=== PATIENT | female | born 1965 | race African-American/Black ===

== ENCOUNTER 2016-11-05 11:39 | Emergency (ER) | payer OTHER ==
[~2016-11-05] VITALS: Ht 175.3 cm; Wt 71.0 kg
[~2016-11-05 11:39] MED LIST: ADVA250A INH; FURO20 PO; KEPP1000 PO; PERC10TA27 PO; XANA0.5T PO
[2016-11-05] MEDS ORDERED: SODIUM CHLORIDE 0.9% FLUSH 5 ML FLUSH IVF PRN (12:00)
[2016-11-05 12:01] VITALS: BP 133/74; PULSE 83; RESP 24; TEMP 98.1; O2SAT 95
[2016-11-05 12:06] VITALS: O2SAT 96
--- NOTE | 2016-11-05 12:07 | PD ---
HPI Chief Complaint: Seizure Time Seen by Provider: 12:04 Travel History International Travel<30 days: No Contact w/Intl Traveler<30days: No Traveled to known affect area: No History of Present Illness HPI Patient comes in for evaluation status post seizure occurred while at home. Patient has a history of seizures and has a dog that warned her prior to having a seizure. Patient states she was sitting on a stool talking with her son when the seizure occurred. Paramedics report they pick patient up off the floor and the patient was postictal. Patient reports she feels similar to previous seizures and that she feels tired and a little short of breath, which she reports is how she normally feels after having a seizure. Patient reports her discomfort her left occipital lobe. Patient reports her last seizure was June 2016 and that she does follow with her neurologist. Denies any chest pain, nausea, vomiting, abdominal pain, or fevers. PFSH Past Medical History Asthma: Yes Bipolar Disorder: Yes Anxiety: Yes Depression: Yes Heart Rhythm Problems: No Cancer: No Cardiovascular Problems: Yes High Cholesterol: No Chemotherapy: No Congestive Heart Failure: Yes Diabetes: Yes (BORDERLINE) Diminished Hearing: No Endocrine: Yes Gastrointestinal Disorders: No GERD: Yes Genitourinary: Yes (FIBROIDS) Hepatitis: No Hiatal Hernia: No Hypertension: Yes Immune Disorder: Yes Implanted Vascular Access Dvce: No Musculoskeletal: Yes (CHRONIC BACK & LT SHOULDER) Neurologic: Yes (SEIZURE DISORDER) Psychiatric: Yes ( PANIC ATTACKS) Reproductive: No Respiratory: Yes (ASTHMA) Immunizations Current: Yes Migraines: Yes Radiation Therapy: No Seizures: Yes (CONTROLLED WITH MEDS , LAST SEIZURE - LAST 2014) Sickle Cell Disease: No Thyroid Disease: No LMP: 2012 Menopausal: Yes : 2 Para: 1 Miscarriage: 1 Past Surgical History AICD: No Gynecologic Surgery: Yes (FIBROID EMBOLIZATION) Hysterectomy: Yes (Partial) Joint Replacement: No Pacemaker: No Other Surgery: Yes (1 year ago fibroid uterine embolization) Social History Alcohol Use: No Tobacco Use: No Substance Use: No Allergies-Medications (Allergen,Severity, Reaction): Coded Allergies: Fentanyl (Verified Allergy, Unknown, SEIZURES, 11/05/16) Vicodin (Verified Allergy, Unknown, 11/05/16) Sulfa (Verified Adverse Reaction, Intermediate, VOMIT, 11/05/16) SHORTNESS OF BREATH Reported Meds & Prescriptions Reported Meds & Active Scripts Active Reported Omeprazole 20 Mg Tab 20 Mg PO DAILY Gabapentin 100 Mg Cap 100 Mg PO TID Lasix (Furosemide) 20 Mg Tab 20 Mg PO DAILY Fentanyl Patch 72 HR (Fentanyl) 50 Mcg/Hr Patch 50 Mcg T-DERMAL Q72H Remove old patch when new one placed. Oxycodone-Acetaminophen 10-325 mg Tab 1 Tab PO Q6H PRN Meloxicam 15 Mg Tab 20 Mg PO DAILY Ventolin Hfa 18 GM Inh (Albuterol Sulfate) 90 Mcg/Act Aer 2 Puff INH Q4-6H PRN Xanax (Alprazolam) 0.5 Mg Tab 0.5 Mg PO Q8H PRN Keppra (Levetiracetam) 1,000 Mg Tab 1,000 Mg PO BID Trokendi Xr (Topiramate) 25 Mg Cap 25 Mg PO BID Review of Systems Except as stated in HPI: all other systems reviewed are Neg Physical Exam Narrative GENERAL: Well-developed, well nourished, in no acute distress, and non-ill appearing. SKIN: Warm and dry. HEAD: Atraumatic. Normocephalic. EYES: Pupils equal and round. EOMI. No scleral icterus. No injection or drainage. ENT: No nasal bleeding or discharge. Mucous membranes pink and moist. NECK: Trachea midline. Supple. No nuclear rigidity. CARDIOVASCULAR: Regular rate and rhythm. No murmur appreciated. RESPIRATORY: No accessory muscle use. No respiratory distress. Clear to auscultation. Breath sounds equal bilaterally. MUSCULOSKELETAL: No obvious deformities. No clubbing. No cyanosis. No edema. Full range of motion. NEUROLOGICAL: Awake and alert. No obvious cranial nerve deficits. Motor grossly within normal limits. Normal speech. PSYCHIATRIC: Appropriate mood and affect; insight and judgment normal. Data Data Last Documented VS Vital Signs Date Time Temp Pulse Resp B/P Pulse Ox O2 Delivery O2 Flow Rate FiO2 11/05/16 12:06 96 11/05/16 12:01 98.1 83 24 133/74 Orders Complete Blood Count With Diff (11/05/16 11:58) Basic Metabolic Panel (Bmp) (11/05/16 11:58) Ct Brain W/O Iv Contrast(Rout) (11/05/16 ) Blood Glucose (11/05/16 11:58) Ecg Monitoring (11/05/16 11:58) Iv Access Insert/Monitor (11/05/16 11:58) Oximetry (11/05/16 11:58) Sodium Chloride 0.9% Flush (Ns Flush) (11/05/16 12:00) Topiramate (Topamax) (11/05/16 11:58) Labs Laboratory Tests Test 11/05/16 12:44 White Blood Count 6.0 TH/MM3 Red Blood Count 4.47 MIL/MM3 Hemoglobin 13.9 GM/DL Hematocrit 40.5 % Mean Corpuscular Volume 90.6 FL Mean Corpuscular Hemoglobin 31.0 PG Mean Corpuscular Hemoglobin 34.3 % Concent Red Cell Distribution Width 13.8 % Platelet Count 202 TH/MM3 Mean Platelet Volume 8.4 FL Neutrophils (%) (Auto) 52.8 % Lymphocytes (%) (Auto) 33.9 % Monocytes (%) (Auto) 11.2 % Eosinophils (%) (Auto) 1.6 % Basophils (%) (Auto) 0.5 % Neutrophils # (Auto) 3.2 TH/MM3 Lymphocytes # (Auto) 2.0 TH/MM3 Monocytes # (Auto) 0.7 TH/MM3 Eosinophils # (Auto) 0.1 TH/MM3 Basophils # (Auto) 0.0 TH/MM3 CBC Comment DIFF FINAL Differential Comment Sodium Level 140 MEQ/L Potassium Level 3.6 MEQ/L Chloride Level 104 MEQ/L Carbon Dioxide Level 30.7 MEQ/L Anion Gap 5 MEQ/L Blood Urea Nitrogen 11 MG/DL Creatinine 0.97 MG/DL Estimat Glomerular Filtration 74 ML/MIN Rate Random Glucose 102 MG/DL Calcium Level 8.9 MG/DL MDM Medical Decision Making Medical Screen Exam Complete: Yes Emergency Medical Condition: Yes Differential Diagnosis Seizure, electrolyte abnormality, headache injury, intracranial hemorrhage, other Narrative Course The patient presented with seizure. The patient has a known seizure disorder. The patient looks great and has returned to baseline. There is no evidence clinically to suggest meningitis, infection or metabolic etiology. The patient appears well hydrated and nontoxic. Clinical suspicion was discussed with patient. Patient was instructed to return as needed or if recurred prior to follow up with neurology. Patient agreed with plan and instructions. The patient was also informed that they may not drive or operated heavy machinery due to the fact that they may have a seizure and cause injury or to themselves or others. They may not drive or operate heavy machinery until cleared by a neurologist. Patient in no obvious distress upon re-evaluation. All pertinent laboratory/ Radiology result(s) discussed with patient. Discussed patient with Dr. Laguna, who saw and evaluated the patient and is in agreement with plan of care and disposition. Any questions/concerns in reference to patient diagnosis/ condition discussed and clarified prior to patient's discharge. Reinforced sheer importance of close follow up with patient's neurologist. Instructed patient to return to ED immediately, if symptoms return/worsen. Pt showed understanding of above instructions. Further instructions and recommendations were detailed in discharge paperwork. Pt ambulated without difficulty out of ED at discharge. Diagnosis Primary Impression: Seizure Patient Instructions: General Instructions, Recurrent Seizures in Adults (GEN) Additional Instructions: Follow-up with your neurologist this week for reevaluation. Return to the emergency department if symptoms get worse. Disposition: 01 DISCHARGE HOME Condition: Stable Jim Daley Nov 05, 2016 12:07
[2016-11-05] MEDS ORDERED: ALPR.5 PO (12:13)
[2016-11-05] MEDS ORDERED: KEPP10002 PO (12:13)
[2016-11-05] MEDS ORDERED: TOPI1CAP25 PO (12:13)
[2016-11-05] MEDS ORDERED: VENTAER INH (12:13)
[2016-11-05] MEDS ORDERED: OXYC1TAB36 PO (12:14)
[2016-11-05] MEDS ORDERED: GABA100C4 PO (12:14)
[2016-11-05] MEDS ORDERED: FURO1TAB62 PO (12:14)
[2016-11-05] MEDS ORDERED: MELO-1 PO (12:14)
[2016-11-05] MEDS ORDERED: OMEP20TA PO (12:14)
[2016-11-05] MEDS ORDERED: FENT50DI T-DERMAL (12:14)
[2016-11-05] MEDS ORDERED: DEPRESSION PO (12:14)
--- NOTE | 2016-11-05 12:30 | RADRPT ---
EXAM DATE/TIME: 11/05/2016 12:22 [facility] COMPARISON: CT BRAIN W/O CONTRAST, May 13, 2016, 14:36. INDICATIONS : Seizure; trauma, posterior. RADIATION DOSE: 47.06 CTDIvol (mGy) MEDICAL HISTORY : Seizures. Cardiovascular disease Hypertension. SURGICAL HISTORY : Hysterectomy. ENCOUNTER: Initial ACUITY: 1 day PAIN SCALE: 6/10 LOCATION: cranial TECHNIQUE: Multiple contiguous axial images were obtained of the head. Using automated exposure control and adj ustment of the mA and/or kV according to patient size, radiation dose was kept as low as reasonably a chievable to obtain optimal diagnostic quality images. FINDINGS: CEREBRUM: The ventricles are normal for age. No evidence of midline shift, mass lesion, hemorrhage or acute in farction. No extra-axial fluid collections are seen. POSTERIOR FOSSA: The cerebellum and brainstem are intact. The 4th ventricle is midline. The cerebellopontine angle i s unremarkable. EXTRACRANIAL: The visualized portion of the orbits is intact. SKULL: The calvaria is intact. No evidence of skull fracture. CONCLUSION: No acute disease. Maco Alexis MD FACR on November 05, 2016 at 12:28 Board Certified Radiologist. This report was verified electronically.
[2016-11-05 13:09] LABS: AUTOMATED NEUTROPHIL # 3.2 TH/MM3 (1.8-7.7); BASOPHIL % 0.5 % (0.0-2.0); EOSINOPHIL # 0.1 TH/MM3 (0-0.4); EOSINOPHIL % 1.6 % (0.0-4.0); HEMATOCRIT 40.5 % (35.0-46.0); HEMO FLAGS DIFF FINAL; LYMPH % 33.9 % (9.0-44.0); MEAN CELL VOLUME 90.6 FL (80.0-100.0); MEAN CORPUSCULAR HGB CONC 34.3 % (32.0-36.0); MONO % 11.2 % (0.0-8.0); NEUT % 52.8 % (16.0-70.0); PLATELET COUNT 202 TH/MM3 (150-450); RED BLOOD COUNT 4.47 MIL/MM3 (4.00-5.30); RED CELL DISTRIBUTION WIDTH 13.8 % (11.6-17.2)
[2016-11-05 13:25] LABS: BICARBONATE 30.7 MEQ/L (21.0-32.0); POTASSIUM 3.6 MEQ/L (3.5-5.1)
== END 2016-11-05 14:23 | disposition home or self-care (01) ==
LOC: NEPE 11:39
DX: G40.909 Epilepsy, unspecified, not intractable, without status epilepticus (principal); R73.03 Prediabetes; I10 Essential (primary) hypertension; Z87.09 Personal history of other diseases of the respiratory system; Z86.59 Personal history of other mental and behavioral disorders; Z86.79 Personal history of other diseases of the circulatory system; Z87.19 Personal history of other diseases of the digestive system; Z86.2 Personal history of diseases of the blood and blood-forming organs and certain disorders involving the immune mechanism; Z87.39 Personal history of other diseases of the musculoskeletal system and connective tissue; Z86.69 Personal history of other diseases of the nervous system and sense organs
CPT/HCPCS: 70450; 80048; 80201; 85025

== ENCOUNTER 2017-01-05 19:22 | Emergency (ER) | payer OTHER ==
[~2017-01-05] VITALS: Ht 175.3 cm; Wt 78.0 kg
[~2017-01-05 19:22] MED LIST changes: -ADVA250A INH; +ALPR.5 PO; +DEPRESSION PO; +FENT50DI T-DERMAL; +FURO1TAB62 PO; -FURO20 PO; +GABA100C4 PO; -KEPP1000 PO; +KEPP10002 PO; +MELO-1 PO; +OMEP20TA PO; +OXYC1TAB36 PO; -PERC10TA27 PO; +TOPI1CAP25 PO; +VENTAER INH; -XANA0.5T PO
[2017-01-05 19:27] VITALS: BP 114/68; PULSE 76; RESP 18; TEMP 98.1; O2SAT 100
[2017-01-05 19:40] VITALS: BP 114/68; PULSE 76; RESP 18; TEMP 98.1; O2SAT 100
--- NOTE | 2017-01-05 19:57 | PD ---
HPI Chief Complaint: Complaint Time Seen by Provider: 19:40 Travel History International Travel<30 days: No Contact w/Intl Traveler<30days: No Traveled to known affect area: No History of Present Illness HPI Patient is a 51 year old female who presents to ER with c/o of irritation to her vagina. Patient reports that she was told by her catering truck operator not to use scented bath soaps. Reports that she accidentally bought a scented bath soap and reports that she noticed increased irritation to her vagina. Patient reports that she has these symptoms past, she usually has a yeast infection. Patient denies any vaginal discharge or bleeding. Patient reports that she has had a hysterectomy in the past, that she has not been sexually active for the past few months and adamantly denies vaginal discharge. Patient denies dysuria , urinary urgency or frequency. Patient denies fevers or chills. Patient denies abdominal pain. Patient with no other complaints. PFSH Past Medical History Asthma: Yes Bipolar Disorder: Yes Anxiety: Yes Depression: Yes Heart Rhythm Problems: No Cancer: No Cardiovascular Problems: Yes High Cholesterol: No Chemotherapy: No Congestive Heart Failure: Yes Diabetes: Yes (BORDERLINE) Patient Takes Glucophage: No Diminished Hearing: No Endocrine: Yes Gastrointestinal Disorders: No GERD: Yes Genitourinary: Yes (FIBROIDS) Hepatitis: No Hiatal Hernia: No Hypertension: Yes Immune Disorder: Yes Implanted Vascular Access Dvce: No Musculoskeletal: Yes (CHRONIC BACK & LT SHOULDER) Neurologic: Yes (SEIZURE DISORDER) Psychiatric: Yes ( PANIC ATTACKS) Reproductive: No Respiratory: Yes (ASTHMA) Immunizations Current: Yes Migraines: Yes Radiation Therapy: No Seizures: Yes (CONTROLLED WITH MEDS , LAST SEIZURE - LAST 2014) Sickle Cell Disease: No Thyroid Disease: No Tetanus Vaccination: < 5 Years Influenza Vaccination: Yes ?: Not Menopausal: Yes : 2 Para: 1 Miscarriage: 1 Past Surgical History AICD: No Gynecologic Surgery: Yes (FIBROID EMBOLIZATION) Hysterectomy: Yes Joint Replacement: No Pacemaker: No Other Surgery: Yes (1 year ago fibroid uterine embolization) Social History Alcohol Use: No Tobacco Use: No Substance Use: No Allergies-Medications (Allergen,Severity, Reaction): Coded Allergies: Fentanyl (Verified Allergy, Unknown, SEIZURES, 01/05/17) Vicodin (Verified Allergy, Unknown, 01/05/17) Sulfa (Verified Adverse Reaction, Intermediate, VOMIT, 4/1/17) SHORTNESS OF BREATH Reported Meds & Prescriptions Reported Meds & Active Scripts Active Diflucan (Fluconazole) 150 Mg Tab 150 Mg PO ONCE Macrobid (Nitrofurantoin Monoh/Nitrofur Macro) 100 Mg Cap 100 Mg PO BID 10 Days Reported Omeprazole 20 Mg Tab 20 Mg PO DAILY Fentanyl Patch 72 HR (Fentanyl) 50 Mcg/Hr Patch 50 Mcg T-DERMAL Q72H Remove old patch when new one placed. Oxycodone-Acetaminophen 10-325 mg Tab 1 Tab PO Q6H PRN Ventolin Hfa 18 GM Inh (Albuterol Sulfate) 90 Mcg/Act Aer 2 Puff INH Q4-6H PRN Xanax (Alprazolam) 0.5 Mg Tab 0.5 Mg PO Q8H PRN Keppra (Levetiracetam) 1,000 Mg Tab 1,000 Mg PO BID Trokendi Xr (Topiramate) 25 Mg Cap 25 Mg PO BID Review of Systems General / Constitutional: No: Fever Eyes: No: Visual changes HENT: No: Headaches Cardiovascular: No: Chest Pain or Discomfort Respiratory: No: Shortness of Breath Gastrointestinal: No: Abdominal Pain Genitourinary: No: Urgency, Frequency, Dysuria, Pelvic Pain, Flank Pain, Discharge, Vaginal Bleeding Musculoskeletal: No: Pain Skin: No Rash Neurologic: No: Weakness Psychiatric: No: Depression Endocrine: No: Polydipsia Hematologic/Lymphatic: No: Easy Bruising Physical Exam Narrative GENERAL: nad, nontoxic SKIN: Focused skin assessment warm/dry. HEAD: Atraumatic. Normocephalic. NECK: Trachea midline. No JVD. CARDIOVASCULAR: Regular rate and rhythm. No murmur appreciated. RESPIRATORY: No accessory muscle use. Clear to auscultation. Breath sounds equal bilaterally. GASTROINTESTINAL: Abdomen soft, non-tender, nondistended. Hepatic and splenic margins not palpable. Exam: patient with no vaginal discharge on exam, labia majora with slight redness/irritation, no abnormal lesions or vesicles MUSCULOSKELETAL: No obvious deformities. No clubbing. No cyanosis. No edema. NEUROLOGICAL: Awake and alert. Normal speech. PSYCHIATRIC: Appropriate mood and affect; insight and judgment normal. Data Data Last Documented VS Vital Signs Date Time Temp Pulse Resp B/P Pulse Ox O2 Delivery O2 Flow Rate FiO2 01/05/17 19:47 76 18 01/05/17 19:40 98.1 114/68 100 Orders Urinalysis - C+S If Indicated (01/05/17 19:50) Urine Culture (01/05/17 20:00) Nitrofurantoin Monohyd Macrocr (Macrobid (01/05/17 20:30) Labs Laboratory Tests Test 01/05/17 20:00 Urine Color YELLOW Urine Turbidity SLIGHT Urine pH 5.5 Urine Specific Peyton 1.021 Urine Protein NEG mg/dL Urine Glucose (UA) NEG mg/dL Urine Ketones NEG mg/dL Urine Occult Blood NEG Urine Nitrite NEG Urine Bilirubin NEG Urine Leukocyte Esterase SMALL Urine RBC 0-3 /hpf Urine WBC 15-19 /hpf Urine Squamous Epithelial 6-8 /hpf Cells Urine Bacteria OCC /hpf Urine Mucus MOD /lpf Microscopic Urinalysis Comment CULTURE INDICATED MDM Medical Decision Making Medical Screen Exam Complete: Yes Emergency Medical Condition: Yes Interpretation(s) Vital Signs Date Time Temp Pulse Resp B/P Pulse Ox O2 Delivery O2 Flow Rate FiO2 01/05/17 19:47 76 18 01/05/17 19:40 98.1 76 18 114/68 100 01/05/17 19:27 98.1 76 18 114/68 100 Differential Diagnosis yeast infection, uti, cervicitis Narrative Course 51 year old female who presents to emergency room with complaints of 2 days of vaginal irritation and itching. Patient reports that she has been using scented bath soap which her catering truck operator told her not to use as they do give her yeast infections. Patient concerned that she may have a yeast versus urinary tract infection at this time. Patient underwent denies vaginal discharge, patient defers internal pelvic exam at this time. UA sent. Patient with most likely yeast infection given her mild irritation to her labia majora on exam vs UTI as she reports that she has had UTI's with similar symptoms in the past. Laboratory Tests Test 01/05/17 20:00 Urine Color YELLOW (YELLW/STRAW) Urine Turbidity SLIGHT (CLEAR) Urine pH 5.5 (5.0-8.5) Urine Specific Peyton 1.021 (1.002-1.035) Urine Protein NEG mg/dL (NEG-TRACE) Urine Glucose (UA) NEG mg/dL (NEG) Urine Ketones NEG mg/dL (NEG) Urine Occult Blood NEG (NEG) Urine Nitrite NEG (NEG) Urine Bilirubin NEG (NEG) Urine Leukocyte Esterase SMALL (NEG) Urine RBC 0-3 /hpf (0-3) Urine WBC 15-19 /hpf (0-5) Urine Squamous Epithelial 6-8 /hpf (0-5) Cells Urine Bacteria OCC /hpf (NONE) Urine Mucus MOD /lpf (OCC) Microscopic Urinalysis Comment CULTURE INDICATED Microbiology Date/Time Procedure Status Source Growth 01/05/17 20:00 Urine Culture Received Urine Clean Catch Pending pt with uti, cx sent. will also tx with diflucan for yeast infection. Patient will follow up with cultures today. Patient will return to emergency room as needed Diagnosis Primary Impression: UTI (urinary tract infection) Qualified Code: N30.01 - Acute cystitis with hematuria Patient Instructions: General Instructions Additional Instructions: Please follow-up with cultures from today Return to the emergency room symptoms worsen or progress Return to emergency room as needed Please up with your catering truck operator Med/Other Pt SpecificInfo: Prescription(s) given Scripts Fluconazole (Diflucan)150 Mg [id number] Mg PO ONCE #2 TAB Ref 0 Prov:Katia Samson DO 01/05/17 Nitrofurantoin Monohydrate Macrocrystals (Macrobid)100 Mg [id number] Mg PO BID 10 Days Ref 0 Prov:Katia Samson DO 01/05/17 Disposition: 01 DISCHARGE HOME Condition: Stable Katia Samson DO Jan 05, 2017 19:57
[2017-01-05 20:16] LABS: BLOOD, URINE NEG (NEG); GLUCOSE,URINE NEG (NEG); KETONE, URINE NEG (NEG); NITRITE,URINE NEG (NEG); PH, URINE 5.5 (5.0-8.5)
[2017-01-05 20:22] LABS: URINE COLOR YELLOW (YELLW/STRAW)
[2017-01-05 20:23] LABS: BACTERIA, URINE OCC /hpf; COMMENT (UR) CULTURE INDICATED; CULTURE IF INDICATED CULTURE INDICATED; MUCUS URINE MOD /lpf (OCC); RBC, URINE 0-3 /hpf (0-3); WBC, URINE 15-19 /hpf (0-5)
[2017-01-05] MEDS ORDERED: MACR100C2 PO (20:30)
[2017-01-05] MEDS ORDERED: DIFL150T PO (20:30)
[2017-01-05] MEDS ORDERED: NITROFURANTOIN MONOHYD MACROCR 100 MG CAP PO ONE (20:30)
[2017-01-05 20:57] VITALS: BP 98/72
== END 2017-01-05 21:02 | disposition home or self-care (01) ==
LOC: PHED 19:22
DX: N30.01 Acute cystitis with hematuria (principal); B96.89 Other specified bacterial agents as the cause of diseases classified elsewhere; J45.909 Unspecified asthma, uncomplicated; I11.0 Hypertensive heart disease with heart failure; I50.9 Heart failure, unspecified; K21.9 Gastro-esophageal reflux disease without esophagitis; G40.909 Epilepsy, unspecified, not intractable, without status epilepticus; Z88.2 Allergy status to sulfonamides; Z88.5 Allergy status to narcotic agent
CPT/HCPCS: 81001; 87086; 99283

== ENCOUNTER → 2017-01-07 | Outpatient (CLI) | payer OTHER ==
[~2017-01-07] MED LIST changes: -DEPRESSION PO; +DIFL150T PO; -FURO1TAB62 PO; -GABA100C4 PO; +IBUP800T23 PO; +MACR100C2 PO; -MELO-1 PO
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
== END ==
LOC: HEEG 07:26
PROVIDERS: ATTEND Psychiatry & Neurology Neurology
DX: G40.309 Generalized idiopathic epilepsy and epileptic syndromes, not intractable, without status epilepticus (principal)
CPT/HCPCS: 95819

== ENCOUNTER 2017-02-12 09:08 | Emergency (ER) | payer OTHER ==
[~2017-02-12] VITALS: Ht 175.3 cm; Wt 70.0 kg
[~2017-02-12 09:08] MED LIST changes: -IBUP800T23 PO
[2017-02-12 09:11] VITALS: BP 129/59; PULSE 79; RESP 17; TEMP 98.2; O2SAT 98
--- NOTE | 2017-02-12 09:15 | PD ---
HPI . left knee pain worse since yesterday Chief Complaint: Injury Time Seen by Provider: 09:15 Travel History International Travel<30 days: No Contact w/Intl Traveler<30days: No Traveled to known affect area: No History of Present Illness HPI 51-year-old female with history of seizure disorder and chronic pain here with complaints of left acute on chronic knee pain. Patient tells me she was moving some furniture and accidentally fell to her left knee on the carpet. She tells me that she knows her knee is not broken, however she would like a knee immobilizer. She received one in the past and it helped her a lot, but she does not have it anymore. She is complaining of pain in the left knee. She tells me that she has chronic issues with this knee and has fluid that needs to be drained. She is ambulatory. Today she is accompanied by her service dog. PFSH Past Medical History Asthma: Yes Bipolar Disorder: Yes Anxiety: Yes Depression: Yes Heart Rhythm Problems: No Cancer: No Cardiovascular Problems: Yes High Cholesterol: No Chemotherapy: No Congestive Heart Failure: Yes Diabetes: Yes (BORDERLINE) Diminished Hearing: No Endocrine: Yes Gastrointestinal Disorders: No GERD: Yes Genitourinary: Yes (FIBROIDS) Hepatitis: No Hiatal Hernia: No Hypertension: Yes Immune Disorder: Yes Implanted Vascular Access Dvce: No Musculoskeletal: Yes (CHRONIC BACK & LT SHOULDER) Neurologic: Yes (SEIZURE DISORDER) Psychiatric: Yes ( PANIC ATTACKS) Reproductive: No Respiratory: Yes (ASTHMA) Immunizations Current: Yes Migraines: Yes Radiation Therapy: No Seizures: Yes (CONTROLLED WITH MEDS , LAST SEIZURE - LAST 2014) Sickle Cell Disease: No Thyroid Disease: No ?: Not Menopausal: Yes : 2 Para: 1 Miscarriage: 1 Past Surgical History AICD: No Gynecologic Surgery: Yes (FIBROID EMBOLIZATION) Hysterectomy: Yes Joint Replacement: No Pacemaker: No Other Surgery: Yes (1 year ago fibroid uterine embolization) Social History Alcohol Use: No Tobacco Use: No Substance Use: No Allergies-Medications (Allergen,Severity, Reaction): Coded Allergies: Fentanyl (Verified Allergy, Unknown, SEIZURES, 02/12/17) Vicodin (Verified Allergy, Unknown, 02/12/17) Sulfa (Verified Adverse Reaction, Intermediate, VOMIT, 02/12/17) SHORTNESS OF BREATH Reported Meds & Prescriptions Reported Meds & Active Scripts Active Ibuprofen 800 Mg Tab 800 Mg PO TID Reported Omeprazole 20 Mg Tab 20 Mg PO DAILY Fentanyl Patch 72 HR (Fentanyl) 50 Mcg/Hr Patch 50 Mcg T-DERMAL Q72H Remove old patch when new one placed. Oxycodone-Acetaminophen 10-325 mg Tab 1 Tab PO Q6H PRN Ventolin Hfa 18 GM Inh (Albuterol Sulfate) 90 Mcg/Act Aer 2 Puff INH Q4-6H PRN Xanax (Alprazolam) 0.5 Mg Tab 0.5 Mg PO Q8H PRN Keppra (Levetiracetam) 1,000 Mg Tab 1,000 Mg PO BID Review of Systems General / Constitutional: No: Fever Eyes: No: Visual changes HENT: No: Headaches Cardiovascular: No: Chest Pain or Discomfort Respiratory: No: Shortness of Breath Gastrointestinal: No: Abdominal Pain Genitourinary: No: Dysuria Musculoskeletal: Positive: Pain (left knee pain) Skin: No Rash Neurologic: No: Weakness Psychiatric: No: Depression Endocrine: No: Polydipsia Hematologic/Lymphatic: No: Easy Bruising Physical Exam Narrative GENERAL: AAO x 3, no acute distress, Well-nourished, well-developed patient. SKIN: Warm and dry. No visible rashes or bruising. HEAD: Normocephalic and atraumatic. EYES: No scleral icterus. No injection or drainage. ENT: No nasal drainage noted. Airway patent. NECK: Supple, trachea midline. No JVD. CARDIOVASCULAR: Regular rate and rhythm without murmurs, gallops, or rubs. RESPIRATORY: Breath sounds equal bilaterally. No accessory muscle use. No rhonchi or rales. GASTROINTESTINAL: Visual inspection normal EXTREMITIES: No cyanosis. Mild joint effusion of the left lateral knee. Range of motion is normal. Flexion and extension of the left knee normal. Mild crepitus present. Negative Saniya and Sera. BACK: Nontender without obvious deformity. No CVA tenderness. PSYCH: AAO x 3, normal affect. Data Data Last Documented VS Vital Signs Date Time Temp Pulse Resp B/P Pulse Ox O2 Delivery O2 Flow Rate FiO2 02/12/17 09:11 98.2 79 17 129/59 98 Orders ^ Ciro Bandage (02/12/17 09:18) MDM Medical Decision Making Medical Screen Exam Complete: Yes Emergency Medical Condition: Yes Medical Record Reviewed: Yes Differential Diagnosis Acute on chronic knee pain, OA, RF, knee effusion Narrative Course 51-year-old female with history of seizure disorder and chronic pain here with complaints of left acute on chronic knee pain. Patient tells me she was moving some furniture and accidentally fell to her left knee on the carpet. She tells me that she knows her knee is not broken, however she would like a knee immobilizer. She received one in the past and it helped her a lot, but she does not have it anymore. She is complaining of pain in the left knee. She tells me that she has chronic issues with this knee and has fluid that needs to be drained. She is ambulatory. Today she is accompanied by her service dog. Patient seen and examined. She does not have any evidence of acute trauma to the left knee. This appears to be an acute on chronic issue. There is no need for imaging and we have discussed this. She is in agreement. I will go ahead and provide her with an Ciro wrap. I explained that a knee immobilizer is not indicated for her treatment. We discussed purchasing a knee brace OTC. She can use anti-inflammatories for pain relief. I recommend follow-up with her primary care provider for referral to orthopedist for possible drainage of the effusion. Patient verbalized understanding of instructions, questions were answered, and thanked me for their care. I advised them if their condition worsens, please return to the nearest emergency room for further care. Diagnosis Primary Impression: Knee pain, chronic Qualified Code: M25.562 - Chronic pain of left knee Patient Instructions: General Instructions Additional Instructions: Please return to emergency department if your symptoms return or worsen. Follow up with your primary care provider. Take medications as prescribed. Please follow-up with your primary care provider for referral to orthopedic to have the fluid drained from the knee. Med/Other Pt SpecificInfo: Prescription(s) given Scripts Ibuprofen 800 Mg [id number] Mg PO TID #21 TAB Prov:Katia Samson 02/12/17 Disposition: 01 DISCHARGE HOME Condition: Stable Belem Lunsford February 12, 2017 09:15
[2017-02-12] MEDS ORDERED: IBUP800T23 PO (09:18)
== END 2017-02-12 09:35 | disposition home or self-care (01) ==
LOC: NEPK 09:08
DX: M25.562 Pain in left knee (principal); G89.29 Other chronic pain; I50.9 Heart failure, unspecified; I10 Essential (primary) hypertension; R56.9 Unspecified convulsions
CPT/HCPCS: 99283

== ENCOUNTER 2017-07-07 12:20 | Emergency (ER) | payer OTHER, MEDICAID ==
[~2017-07-07 12:20] MED LIST changes: -DIFL150T PO; +IBUP800T23 PO; -MACR100C2 PO; -TOPI1CAP25 PO
[2017-07-07 12:21] VITALS: BP 126/58; PULSE 76; RESP 14; TEMP 98.1; O2SAT 98
--- NOTE | 2017-07-07 13:03 | PD ---
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 The patient reports that over the last couple of days she has had very little to drink as far as water goes. She states that she has been drinking cappuccino's instead. She is also noted some irritation and dysuria. Patient also reports having vaginal discharge which initially was whitish, now is clear and slightly foul-smelling. She reports having sexual intercourse for the first time this year about 2 weeks ago with her ex-. She does not believe that he is sexually active with anyone else. No abdominal pain. PFSH Past Medical History Asthma: Yes Bipolar Disorder: Yes Anxiety: Yes Depression: Yes Heart Rhythm Problems: No Cancer: No Cardiovascular Problems: Yes High Cholesterol: No Chemotherapy: No Congestive Heart Failure: Yes Diabetes: Yes (BORDERLINE) Diminished Hearing: No Endocrine: Yes Gastrointestinal Disorders: No GERD: Yes Genitourinary: Yes (FIBROIDS) Hepatitis: No Hiatal Hernia: No Hypertension: Yes Immune Disorder: Yes Implanted Vascular Access Dvce: No Musculoskeletal: Yes (CHRONIC BACK & LT SHOULDER) Neurologic: Yes (SEIZURE DISORDER) Psychiatric: Yes ( PANIC ATTACKS) Reproductive: No Respiratory: Yes (ASTHMA) Immunizations Current: Yes Migraines: Yes Radiation Therapy: No Seizures: Yes (CONTROLLED WITH MEDS , LAST SEIZURE - LAST 2014) Sickle Cell Disease: No Thyroid Disease: No Menopausal: Yes : 2 Para: 1 Miscarriage: 1 Past Surgical History AICD: No Gynecologic Surgery: Yes (FIBROID EMBOLIZATION) Hysterectomy: Yes Joint Replacement: No Pacemaker: No Other Surgery: Yes (1 year ago fibroid uterine embolization) Social History Alcohol Use: No Tobacco Use: No Substance Use: No Allergies-Medications (Allergen,Severity, Reaction): Coded Allergies: acetaminophen (Unverified Allergy, Unknown, 05/21/17) fentanyl (Unverified Allergy, Unknown, SEIZURES, 05/21/17) hydrocodone (Unverified Allergy, Unknown, 05/21/17) Sulfa (Sulfonamide Antibiotics) (Unverified Adverse Reaction, Intermediate , VOMIT, 05/21/17) SHORTNESS OF BREATH Reported Meds & Prescriptions Reported Meds & Active Scripts Active Ibuprofen 800 Mg Tab 800 Mg PO TID Reported Omeprazole 20 Mg Tab 20 Mg PO DAILY Fentanyl Patch 72 HR (Fentanyl) 50 Mcg/Hr Patch 50 Mcg T-DERMAL Q72H Remove old patch when new one placed. Oxycodone-Acetaminophen 10-325 mg Tab 1 Tab PO Q6H PRN Ventolin Hfa 18 GM Inh (Albuterol Sulfate) 90 Mcg/Act Aer 2 Puff INH Q4-6H PRN Xanax (Alprazolam) 0.5 Mg Tab 0.5 Mg PO Q8H PRN Keppra (Levetiracetam) 1,000 Mg Tab 1,000 Mg PO BID Review of Systems Except as stated in HPI: all other systems reviewed are Neg Physical Exam Narrative GENERAL: Well-developed, well-nourished, comfortable, no apparent distress. SKIN: Focused skin assessment warm/dry. HEAD: Atraumatic. Normocephalic. EYES: Pupils equal and round. No scleral icterus. No injection or drainage. ENT: Mucous membranes pink and moist. CARDIOVASCULAR: Regular rate and rhythm. RESPIRATORY: No accessory muscle use. GASTROINTESTINAL: Abdomen soft, non-tender, nondistended. FOOD TRADES ASSISTANTS: Exam performed in the presence of a female nurse. Normal external genitalia. Scant physiologic vaginal discharge is not foul-smelling. Normal cervix. MUSCULOSKELETAL: No obvious deformities. No clubbing. No cyanosis. No edema. NEUROLOGICAL: Awake and alert. No obvious cranial nerve deficits. Motor grossly within normal limits. Normal speech. PSYCHIATRIC: Appropriate mood and affect; insight and judgment normal. Data Data Last Documented VS Vital Signs Date Time Temp Pulse Resp B/P (MAP) Pulse Ox O2 Delivery O2 Flow Rate FiO2 07/07/17 12:45 16 07/07/17 12:21 98.1 76 126/58 (80) 98 Orders Orders Basic Metabolic Panel (Bmp) (07/07/17 12:59) Gc And Chlamydia Pcr (07/07/17 12:59) Wet Prep Profile (07/07/17 12:59) Urinalysis - C+S If Indicated (07/07/17 12:59) Urine Culture (07/07/17 14:42) Metronidazole (Flagyl) (07/07/17 15:00) Labs Laboratory Tests Test 07/07/17 13:10 10/1/17 13:42 Urine Color YELLOW Urine Turbidity HAZY Urine pH 6.5 Urine Specific Doran 1.018 Urine Protein NEG mg/dL Urine Glucose (UA) NEG mg/dL Urine Ketones NEG mg/dL Urine Occult Blood NEG Urine Nitrite NEG Urine Bilirubin NEG Urine Urobilinogen LESS THAN 2.0 MG/DL Urine Leukocyte Esterase TRACE Urine RBC LESS THAN 1 /hpf Urine WBC 6 /hpf Urine Squamous Epithelial Cells 6 /hpf Urine Bacteria RARE /hpf Urine Hyaline Casts 1 /lpf Urine Mucus FEW /lpf Microscopic Urinalysis Comment CULT NOT INDICATED Blood Urea Nitrogen 10 MG/DL Creatinine 0.91 MG/DL Random Glucose 87 MG/DL Calcium Level 8.4 MG/DL Sodium Level 141 MEQ/L Potassium Level 3.6 MEQ/L Chloride Level 111 MEQ/L Carbon Dioxide Level 24.8 MEQ/L Anion Gap 5 MEQ/L Estimat Glomerular Filtration Rate 80 ML/MIN Clue Cells (Wet Prep) PRESENT Vaginal Trichomonas (Wet Prep) NONE SEEN Vaginal Yeast (Wet Prep) NONE SEEN MDM Medical Decision Making Medical Screen Exam Complete: Yes Emergency Medical Condition: Yes Differential Diagnosis UTI, cystitis, dehydration, BV, Trichomonas, STI Narrative Course Vital signs are within normal limits. BMP is unremarkable. UA shows hazy urine, trace leukocyte esterase, 6 WBCs, rare bacteria, negative nitrites, not suggestive of UTI. Wet prep is positive for clue cells, negative for yeast, negative for Trichomonas. The patient was made aware of all findings per she is resting comfortably. Her abdominal exam is benign. I do not believe that there is an acute intra- abdominal process to warrant imaging at this time. She will be treated for bacterial vaginosis with Flagyl. PMD follow-up this week. She was informed on when to return to the emergency department. She verbalizes understanding and agreement with plan. Diagnosis Primary Impression: Bacterial vaginosis Referrals: Primary Care Physician 3 days Additional Instructions: Take antibiotic as prescribed. Return to the emergency department for worsening symptoms or any other concerns. Follow-up with your primary care physician this week. Scripts Metronidazole (Flagyl) 500 Mg Tab 500 MG PO BID for Infection for 7 Days, #14 TAB 0 Refills Prov: Mehdi Cannon MD 07/07/17 Disposition: 01 DISCHARGE HOME Condition: Stable Mehdi Cannon MD Jul 07, 2017 13:03
[2017-07-07 14:11] LABS: BICARBONATE 24.8 MEQ/L (21.0-32.0); POTASSIUM 3.6 MEQ/L (3.5-5.1)
[2017-07-07 14:32] LABS: BACTERIA, URINE RARE /hpf; BLOOD, URINE NEG (NEG); COMMENT (UR) CULT NOT INDICATED; CULTURE IF INDICATED CULT NOT INDICATED; GLUCOSE,URINE NEG (NEG); HYALINE CAST, URINE 1 /lpf (RARE); KETONE, URINE NEG (NEG); MUCUS URINE FEW /lpf (OCC); NITRITE,URINE NEG (NEG); PH, URINE 6.5 (5.0-8.5); SQUAMOUS EPITHELIAL CELL URINE 6 /hpf (0-5); URINE COLOR YELLOW (YELLW/STRAW)
[2017-07-07] MEDS ORDERED: METR-1 PO (14:56)
[2017-07-07] MEDS ORDERED: metroNIDAZOLE 500 MG TAB PO ONE (15:00)
[2017-07-07 16:20] LABS: CHLAMYDIA PCR NOT DETECTED (NOT DETECT); NEISSERIA PCR NOT DETECTED (NOT DETECT)
== END 2017-07-07 15:01 | disposition home or self-care (01) ==
LOC: NEPD 12:20
DX: N76.0 Acute vaginitis (principal); B96.89 Other specified bacterial agents as the cause of diseases classified elsewhere
CPT/HCPCS: 80048; 81001; 87086; 87210; 87491; 87591; 99284

== ENCOUNTER 2018-02-08 10:53 | Emergency (ER) | payer OTHER, MEDICAID ==
[~2018-02-08] VITALS: Ht 175.3 cm; Wt 72.0 kg
[~2018-02-08 10:53] MED LIST changes: +IBUP1TAB7 PO; -IBUP800T23 PO; +METR-1 PO; -OMEP20TA PO; +OMEP20TA93 PO
[2018-02-08 11:16] VITALS: BP 117/64; PULSE 80; RESP 18; TEMP 98; O2SAT 100
[2018-02-08] MEDS ORDERED: TRAM50TA PO (11:26)
--- NOTE | 2018-02-08 11:27 | PD ---
HPI Chief Complaint: Injury Time Seen by Provider: 11:19 Travel History International Travel<30 days: No Contact w/Intl Traveler<30days: No Traveled to known affect area: No History of Present Illness HPI 52-year-old female complains of right hand pain. She shot her hand in the trunk of her car at the back door tinajero a couple hours prior to ER arrival. She has had worsening pain since. It's worse with active or passive range of motion. There is also painful with palpation n. Associated symptoms include ecchymosis. Onset sudden. PFSH Past Medical History Asthma: Yes Bipolar Disorder: Yes Anxiety: Yes Depression: Yes Heart Rhythm Problems: No Cancer: No Cardiovascular Problems: Yes High Cholesterol: No Chemotherapy: No Congestive Heart Failure: Yes Diabetes: Yes (BORDERLINE) Diminished Hearing: No Endocrine: Yes Gastrointestinal Disorders: No GERD: Yes Genitourinary: Yes (FIBROIDS) Hepatitis: No Hiatal Hernia: No Hypertension: Yes Immune Disorder: Yes Implanted Vascular Access Dvce: No Musculoskeletal: Yes (CHRONIC BACK & LT SHOULDER) Neurologic: Yes (SEIZURE DISORDER) Psychiatric: Yes ( PANIC ATTACKS) Reproductive: No Respiratory: Yes (ASTHMA) Immunizations Current: Yes Migraines: Yes Radiation Therapy: No Seizures: Yes (CONTROLLED WITH MEDS , LAST SEIZURE - LAST 2014) Sickle Cell Disease: No Thyroid Disease: No ?: Not Menopausal: Yes : 2 Para: 1 Miscarriage: 1 Past Surgical History AICD: No Gynecologic Surgery: Yes (FIBROID EMBOLIZATION) Hysterectomy: Yes Joint Replacement: No Pacemaker: No Other Surgery: Yes (1 year ago fibroid uterine embolization) Social History Alcohol Use: No Tobacco Use: No Substance Use: No Allergies-Medications (Allergen,Severity, Reaction): Coded Allergies: acetaminophen (Unverified Allergy, Unknown, 02/08/18) fentanyl (Unverified Allergy, Unknown, SEIZURES, 02/08/18) hydrocodone (Unverified Allergy, Unknown, 02/08/18) ibuprofen (Verified Allergy, Unknown, 02/08/18) Sulfa (Sulfonamide Antibiotics) (Unverified Adverse Reaction, Intermediate , VOMIT, 02/08/18) SHORTNESS OF BREATH Reported Meds & Prescriptions Reported Meds & Active Scripts Active Tramadol (Tramadol HCl) 50 Mg Tab 100 Mg PO Q6H PRN Flagyl (Metronidazole) 500 Mg Tab 500 Mg PO BID 7 Days Ibuprofen 800 Mg Tab 800 Mg PO TID Reported Omeprazole 20 Mg Tab 20 Mg PO DAILY Fentanyl Patch 72 HR (Fentanyl) 50 Mcg/Hr Patch 50 Mcg T-DERMAL Q72H Remove old patch when new one placed. Oxycodone-Acetaminophen 10-325 mg Tab 1 Tab PO Q6H PRN Ventolin Hfa 18 GM Inh (Albuterol Sulfate) 90 Mcg/Act Aer 2 Puff INH Q4-6H PRN Xanax (Alprazolam) 0.5 Mg Tab 0.5 Mg PO Q8H PRN Keppra (Levetiracetam) 1,000 Mg Tab 1,000 Mg PO BID Review of Systems Eyes: No: Diploplia HENT: No: Lightheadedness Cardiovascular: No: Palpitations Respiratory: No: Sneezing Gastrointestinal: No: Diarrhea Genitourinary: No: Frequency Physical Exam Narrative GENERAL: 52-year-old female pleasant well-nourished well-developed Vital Signs Date Time Temp Pulse Resp B/P (MAP) Pulse Ox O2 Delivery O2 Flow Rate FiO2 02/08/18 11:16 98.0 80 18 117/64 (81) 100 SKIN: Warm and dry. HEAD: Normocephalic. EYES: No scleral icterus. No injection or drainage. NECK: Supple, trachea midline. No JVD or lymphadenopathy. CARDIOVASCULAR: Regular rate and rhythm without murmurs, gallops, or rubs. RESPIRATORY: Breath sounds equal bilaterally. No accessory muscle use. GASTROINTESTINAL: Abdomen soft, non-tender, nondistended. MUSCULOSKELETAL: No cyanosis, or edema. Minimal ecchymosis about the metacarpal of the right side #4. Market tenderness in the area. 2+ radial artery pulse. Active range of motion of the fingers is normal bilaterally BACK: Nontender without obvious deformity. No CVA tenderness. Data Data Last Documented VS Vital Signs Date Time Temp Pulse Resp B/P (MAP) Pulse Ox O2 Delivery O2 Flow Rate FiO2 02/08/18 11:16 98.0 80 18 117/64 (81) 100 Orders Orders Hand, Complete ([id number]) (02/08/18 ) Tramadol (Ultram) (02/08/18 11:30) Ed Discharge Order (02/08/18 11:59) Ciro Bandage (02/08/18 11:59) MDM Medical Decision Making Medical Screen Exam Complete: Yes Emergency Medical Condition: Yes Medical Record Reviewed: Yes Differential Diagnosis Contusion, fracture, sprain Narrative Course Patient has contusion of the fourth metacarpal on the right side. Xray is normal Diagnosis Primary Impression: Contusion of hand, right Qualified Codes: S60.221A - Contusion of right hand, initial encounter Med/Other Pt SpecificInfo: Prescription(s) given Scripts Tramadol (Tramadol) 50 Mg Tab 100 MG PO Q6H Y for PAIN, #14 TAB 0 Refills Prov: Kyrie Olivarez MD 02/08/18 Disposition: DISCHARGE HOME Condition: Stable Kyrie Olivarez MD February 08, 2018 11:27
[2018-02-08] MEDS ORDERED: traMADol HCL 50 MG TAB PO ONE (11:30)
--- NOTE | 2018-02-08 11:50 | RADRPT ---
EXAM DATE/TIME: 02/08/2018 11:32 [facility] COMPARISON: No previous studies available for comparison. INDICATIONS : Right hand pain after slamming hand in the trunk of a car. MEDICAL HISTORY : None. SURGICAL HISTORY : None. ENCOUNTER: Initial ACUITY: 1 day PAIN SCORE: 10/10 LOCATION: Right hand. FINDINGS: Three views of the right hand demonstrate no fracture or dislocation. Mineralization is within normal limits and there is no significant arthropathy. No soft tissue abnormality or radiopaque foreign bod y is identified. CONCLUSION: No acute abnormality is identified. Guy Adames MD on February 08, 2018 at 11:47 Board Certified Radiologist. This report was verified electronically.
== END 2018-02-08 11:48 | disposition home or self-care (01) ==
LOC: NEPD 10:53
DX: S60.221A Contusion of right hand, initial encounter (principal); I11.0 Hypertensive heart disease with heart failure; I50.9 Heart failure, unspecified; G40.909 Epilepsy, unspecified, not intractable, without status epilepticus; K21.9 Gastro-esophageal reflux disease without esophagitis; R73.03 Prediabetes; F31.9 Bipolar disorder, unspecified; J45.909 Unspecified asthma, uncomplicated; W22.8XXA Striking against or struck by other objects, initial encounter
CPT/HCPCS: 73130; 99283